=== PATIENT | female | born 1995 | race Caucasian/White ===

== ENCOUNTER 2018-08-30 08:17 | Emergency (ER) | payer OTHER ==
[2018-08-30 08:32] VITALS: BP 117/62
[2018-08-30] MEDS ORDERED: PROPARACAINE 0.5% OPHTH DROPS 15 ML LEFTEYE STA (09:30)
--- NOTE | 2018-08-30 09:38 | ED Physician Documentation ---
PD HPI OPHTHO - Stated complaint Stated Complaint: LEFT EYE PAIN - Chief complaint Chief Complaint: Heent - History obtained from History obtained from: Patient - History of Present Illness Timing - onset: Last night Timing - duration: Hours Timing - details: Abrupt onset, Still present Location: Left Quality / character: Itching, Burning, Sharp Associated symptoms: Redness, Tearing, FB sensation. No: Decreased vision Contributing factors: Wears contacts Similar symptoms before: Has not had sx before Recently seen: Not recently seen - Additional information Additional information: Previously well 23-year-old female who wears daily wear soft contact lenses has developed pain in her left eye with some redness that began yesterday afternoon she got home from work took out her contact lenses and has had pain in her eye since then. She denies specifically a foreign body sensation but does state that it feels like there is some irritation. Review of Systems Constitutional: denies: Fever Eyes: reports: Irritation. denies: Loss of vision, Decreased vision, Photophobia Ears: denies: Ear pain Nose: reports: Rhinorrhea / runny nose, Congestion Throat: denies: Sore throat Respiratory: denies: Cough PD PAST MEDICAL HISTORY - Present Medications Home Medications: Ambulatory Orders Medication Instructions Recorded Confirmed Neomycin/Poly/Dex Ophth Drops 1 drops LEFTEYE QID #1 bottle 08/30/18 [Maxitrol Ophth Drops] - Allergies Allergies/Adverse Reactions: Allergies Allergy/AdvReac Type Severity Reaction Status Date / Time No Known Drug Allergies Allergy Verified 08/30/18 08:27 PD ED PE NORMAL - Vitals Vital signs reviewed: Yes (normal ) - General General: Alert and oriented X 3, Well developed/nourished, Other (tearing in the left eye ) - HEENT HEENT: Atraumatic, PERRL, EOMI, Other (There is injection to the sclera on the left and no obvious ulceration to the cornea. There is no fluoscien uptake in the cornea. ) - Neck Neck: Supple, no meningeal sign, No bony TTP - Respiratory Respiratory: No respiratory distress - Derm Derm: Normal color, Warm and dry, No rash - Extremities Extremities: No deformity, No edema - Neuro Neuro: Alert and oriented X 3, mechanic 2-12 intact, No motor deficit, No sensory deficit, Normal speech Eye Opening: Spontaneous Motor: Obeys Commands Verbal: Oriented GCS Score: 15 - Psych Psych: Normal mood, Normal affect Results - Vitals Vitals: Vital Signs - 24 hr 08/30/18 08:25 Temperature 35.8 C L Heart Rate 79 Respiratory 16 Rate Blood Pressure 117/62 O2 Saturation 99 Oxygen O2 Source Room air PD MEDICAL DECISION MAKING - ED course Complexity details: considered differential, d/w patient ED course: 43-year-old female who wears soft contact lenses has significant irritation to the left eye. There is no evidence of corneal ulceration. 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 Forms: Activity restrictions
== END 2018-08-30 09:58 | disposition home or self-care (01) ==
LOC: ED 08:17
DX: H18.9 Unspecified disorder of cornea (principal)
CPT/HCPCS: 99283; J3490